=== PATIENT | female | born 1995 | race Caucasian/White ===

== ENCOUNTER 2017-06-10 22:16 | Emergency (ER) | payer BC ==
[2017-06-10 22:28] VITALS: TEMP 98.1
--- NOTE | 2017-06-10 22:45 | EDPHY ---
H & P Stated Complaint: TOOK ETOH, MARIJUANA, COCAINE, HASH AND PROZAC TONIGHT TOO [employer] Time Seen by Provider: 06/10/17 22:25 HPI/ROS: Chief Complaint: "Feels strange " HPI: 22-year-old female was drinking alcohol using cocaine and marijuana this evening. Patient is now feeling "strange "with the sensation that she cannot feel her body and is very anxious and worried that she is going to . Patient states she has used cocaine once before in the past and had a similar episode. She does not regularly use marijuana. No nausea or vomiting. No chest pain. No shortness of breath. No palpitations. No abdominal pain. Was recently treated for bacterial vaginosis but completed that medication a week ago. ROS: 10 point Review of Systems is negative except as noted in the HPI. PMH: None Social History: No smoking, occasional alcohol Family History: non-contributory Physical Exam: Gen: Awake, Alert, anxious appearing HEENT: Nose: no rhinorrhea Eyes: PERRLA, EOMI Mouth: Moist mucosa Neck: Supple, no JVD Chest: nontender, lungs clear to auscultation Heart: S1, S2 normal, no murmur, tachycardic Abd: Soft, non-tender, no guarding Back: no CVA tenderness, no midline tenderness Ext: no edema, non-tender Skin: no rash Neuro: CN II-XII intact, Sensation grossly intact, Strength 5/5 in bilateral upper and lower extremities - Personal History Current Tetanus/Diphtheria Vaccine: Yes Current Tetanus Diphtheria and Acellular Pertussis (TDAP): Yes - Medical/Surgical History Hx Asthma: No Hx Chronic Respiratory Disease: No Hx Diabetes: No Hx Cardiac Disease: No Hx Renal Disease: No Hx Cirrhosis: No Hx Alcoholism: No Hx HIV/AIDS: No Hx Splenectomy or Spleen Trauma: No Other PMH: WISDOME TEETH, ACNE, DEPRESSION - Social History Smoking Status: Light smoker Constitutional: Initial Vital Signs Temperature (C) 36.7 C 06/10/17 22:24 Heart Rate 113 H 06/10/17 22:24 Respiratory Rate 24 H 06/10/17 22:24 Blood Pressure 147/88 H 06/10/17 22:24 O2 Sat (%) 100 06/10/17 22:24 O2 Delivery Mode Room Air Allergies/Adverse Reactions: No Known Allergies Allergy (Unverified 06/10/17 22:28) Home Medications: Medication Instructions Recorded FLUoxetine [Prozac 20 MG (*)] 20 mg PO DAILY 06/10/17 Spironolactone 25 mg PO 06/10/17 Medical Decision Making ED Course/Re-evaluation: Patient is feeling improved. She has sober friends at the bedside. She has not been having any vomiting. She is ambulating unassisted to the bathroom. She is suitable for discharge at this time. I have counseled her to not use cocaine and to be cautious of her alcohol use. She will follow up with [facility] for any concerns. Departure - Departure Disposition: Home, Routine, Self-Care Clinical Impression: Alcoholic intoxication, Polysubstance abuse Condition: Good Instructions: Alcohol Intoxication (ED), Polysubstance Abuse (ED) Referrals: LINDSEY Fernandez,. [Clinic] - As per Instructions
[2017-06-11 00:17] VITALS: BP 132/84; PULSE 93; RESP 22; O2SAT 95
== END 2017-06-11 00:17 | disposition home or self-care (01) ==
LOC: EDUNIT#
DX: F10.129 Alcohol abuse with intoxication, unspecified (principal); F19.10 Other psychoactive substance abuse, uncomplicated; F17.200 Nicotine dependence, unspecified, uncomplicated